=== PATIENT | male | born 1995 | race Caucasian/White ===

== ENCOUNTER 2019-07-17 07:16 | Emergency (ER) | payer SELFPAY ==
[2019-07-17] MEDS ORDERED: Ketorolac 60 MG/2 ML SDV IM ONE (07:53)
--- NOTE | 2019-07-17 07:58 | EDM.PDOC ---
ED HPI GENERAL MEDICAL PROBLEM - General Chief Complaint: Back Pain or Injury Stated Complaint: BACK PAIN Time Seen by Provider: 07/17/19 07:29 Source of Information: Reports: Patient History Limitations: Reports: No Limitations - History of Present Illness INITIAL COMMENTS - FREE TEXT/NARRATIVE: Last night while at work the patient started having spasms in his upper back. He did not fall and did not lift anything heavy. He went to the ER in [place] and was given flexeril. The flexeril has not helped. He is still having muscle spasms with every movement. He has had low back pain before but not in this area. He has no fever, chills, cough, chest pain, shortness of breath, abdominal pain, nausea, vomiting, numbness, weakness, bowel or bladder problems. Onset: Sudden Duration: Day(s): (Last night) Location: Reports: Back Quality: Reports: Sharp Severity: Severe Improves with: Reports: Immobilization Worsens with: Reports: Movement Context: Denies: Trauma Associated Symptoms: Reports: No Other Symptoms Bilateral Middle Back Pain Score (Numeric/FACES): 7 - Related Data Allergies Allergy/AdvReac Type Severity Reaction Status Date / Time No Known Allergies Allergy Verified 07/17/19 08:09 Home Meds: Home Meds Cyclobenzaprine [Flexeril] 10 mg PO TID 07/17/19 [History] Past Medical History HEENT History: Reports: Impaired Vision Other HEENT History: eye glasses Musculoskeletal History: Reports: Fracture Other Musculoskeletal History: Broke L3 three years ago, shattered left pelvis, broken Right heel, dislocated wrist Neurological History: Reports: Concussion Other Neuro History: "a few concussions in the past" ED ROS GENERAL - Review of Systems Review Of Systems: See Below Constitutional: Reports: No Symptoms HEENT: Reports: No Symptoms Respiratory: Reports: No Symptoms Cardiovascular: Reports: No Symptoms Endocrine: Reports: No Symptoms GI/Abdominal: Reports: No Symptoms : Reports: No Symptoms Musculoskeletal: Reports: Back Pain Skin: Reports: No Symptoms Neurological: Reports: No Symptoms ED EXAM, UPPER BACK/NECK PAIN - Physical Exam Exam: See Below Exam Limited By: No Limitations General Appearance: Alert, No Apparent Distress Ears Exam: Normal External Exam Nose Exam: Normal Inspection Head Exam: Atraumatic, Normocephalic Neck Exam: Non-Tender, Normal Alignment, Normal Inspection Cardiovascular/Respiratory: Regular Rate, Rhythm, No M/R/G, Normal Breath Sounds , No Respiratory Distress GI/Abdominal: Soft, Non-Tender, No Organomegaly, No Mass Back Exam: Paraspinal Tenderness (Lower thoracic spine) Extremities: Normal Inspection Course - Vital Signs Last Recorded V/S: Last Vital Signs Temp 97.7 F 07/17/19 07:32 Pulse 54 L 07/17/19 07:32 Resp 18 07/17/19 07:32 BP 135/78 07/17/19 07:32 Pulse Ox 100 07/17/19 07:32 - Orders/Labs/Meds Orders: Active Orders 24 hr Category Date Time Status Cardiac Monitoring [RC] . DIRECTED Care 07/17/19 07:53 Active Thoracic Spine 2V [CR] Stat Exams 07/17/19 07:54 Taken Labs: Laboratory Tests 07/17/19 07/17/19 07/17/19 Range/Units 08:10 08:10 08:10 WBC 6.44 (4.23-9.07) K/mm3 RBC 4.61 L (4.63-6.08) M/mm3 Hgb 14.8 (13.7-17.5) gm/L Hct 41.6 (40.1-51.0) % MCV 90.2 (79.0-92.2) fl MCH 32.1 (25.7-32.2) pg MCHC 35.6 H (32.2-35.5) g/dl RDW Std Deviation 40.2 (35.1-43.9) fL Plt Count 287 (163-337) K/mm3 MPV 9.0 L (9.4-12.3) fl Neut % (Auto) 43.2 (34.0-67.9) % Lymph % (Auto) 39.6 (21.8-53.1) % [place] % (Auto) 12.6 H (5.3-12.2) % Eos % (Auto) 3.0 (0.8-7.0) Baso % (Auto) 1.4 H (0.1-1.2) % Neut # (Auto) 2.79 (1.78-5.38) K/mm3 Lymph # (Auto) 2.55 (1.32-3.57) K/mm3 [place] # (Auto) 0.81 (0.30-0.82) K/mm3 Eos # (Auto) 0.19 (0.04-0.54) K/mm3 Baso # (Auto) 0.09 H (0.01-0.08) K/mm3 D-Dimer, Quantitative < 0.19 L (0.19-0.50) mg/L Sodium 140 (136-145) mEq/L Potassium 4.4 (3.5-5.1) mEq/L Chloride 105 (98-107) mEq/L Carbon Dioxide 31 (21-32) mEq/L Anion Gap 8.4 (5-15) BUN 13 (7-18) mg/dL Creatinine 1.0 (0.7-1.3) mg/dL Est Cr Clr Drug Dosing 126.10 mL/min Estimated GFR (MDRD) > 60 (>60) mL/min BUN/Creatinine Ratio 13.0 L (14-18) Glucose 88 (74-106) mg/dL Calcium 9.0 (8.5-10.1) mg/dL Total Bilirubin 1.2 H (0.2-1.0) mg/dL AST 18 (15-37) U/L ALT 55 (16-63) U/L Alkaline Phosphatase 68 (46-116) U/L Total Protein 7.1 (6.4-8.2) g/dl Albumin 4.1 (3.4-5.0) g/dl Globulin 3.0 gm/dL Albumin/Globulin Ratio 1.4 (1-2) Meds: Medications Discontinued Medications Generic Name Dose Route Start Last Admin Trade Name Manuela PRN Reason Stop Dose Admin Ketorolac Tromethamine 60 mg 07/17/19 07:53 07/17/19 08:10 Toradol IM 07/17/19 07:54 60 mg ONETIME ONE Administration - Re-Assessments/Exams Free Text/Narrative Re-Assessment/Exam: 07/17/19 07:58 I ordered toradol 60mg IM, labs and an x-ray. 07/17/19 09:13 His labs all look good and his x-ray looks good. I will have him keep taking the flexeril and antiinflammatories such as motrin or aleve. Departure - Departure Time of Disposition: :15 Disposition: Home, Self-Care 01 Condition: Good Clinical Impression: Thoracic back pain Qualifiers: Chronicity: acute Back pain laterality: bilateral Qualified Code(s): M54.6 - Pain in thoracic spine - Discharge Information *PRESCRIPTION DRUG MONITORING PROGRAM REVIEWED*: No *COPY OF PRESCRIPTION DRUG MONITORING REPORT IN PATIENT ANISA: No Referrals: PCP,None [Primary Care Provider] - Monika Sen PA-C [Physician G[facility] Farmer] - Forms: ED Department Discharge, ED Return to Work/School Form Additional Instructions: Ice your back for 15 minutes 3 times per day for 2 days. Take motrin or aleve for pain. Take flexeril as needed for pain. Follow up with Rosa Sen in our clinic if you are not better. You may also try resident care spec. Please return if you are worse. - My Orders Last 24 Hours: My Active Orders 07/17/19 07:53 Cardiac Monitoring [RC] . DIRECTED 07/17/19 07:54 Thoracic Spine 2V [CR] Stat - Assessment/Plan Last 24 Hours: My Active Orders 07/17/19 07:53 Cardiac Monitoring [RC] . DIRECTED 07/17/19 07:54 Thoracic Spine 2V [CR] Stat
--- NOTE | 2019-07-19 09:42 | CR ---
Thoracic spine: AP, lateral and swimmer's views of the thoracic spine were. Comparison: No previous thoracic spine imaging. Vertebral body heights and disc spaces are maintained. Pedicles are intact. No subluxation or fracture is seen. Impression: 1. No abnormality is appreciated on three-view thoracic spine exam. Diagnostic code #1
== END 2019-07-17 09:30 | disposition home or self-care (01) ==
LOC: JD.ED 07:16
DX: M54.6 Pain in thoracic spine (principal)
CPT/HCPCS: 36415; 72070; 80053; 85025; 85379; 96372; 99283; J1885; 99282